=== PATIENT | male | born 1955 | race Hispanic/Latino ===

== ENCOUNTER → 2024-08-09 | Day surgery (SDC) | payer MEDICARE ==
[2024-08-08 14:09] LABS: BASOPHILS % 0.2 % (0.0-1.0); EOSINOPHILS # (AUTO) 0.2 (0.0-0.4); EOSINOPHILS % 2.9 % (0.0-6.0); HEMATOCRIT 39.5 % (38.2-49.6); HEMOGLOBIN 12.8 g/dL (14.0-18.0); LYMPHOCYTES # (AUTO) 2.2 (1.0-3.2); LYMPHOCYTES % 26.3 % (18.0-39.1); MEAN CORPUSCULAR HEMOGLOBIN 30.5 pg (28-32); MEAN CORPUSCULAR HGB CONC 32.4 g/dL (31-35); MEAN CORPUSCULAR VOLUME 94.3 fL (81-99); MONOCYTES # (AUTO) 0.5 (0.2-0.8); MONOCYTES % 5.8 % (4.4-11.3); NEUTROPHILS # (AUTO) 5.3 (2.1-6.9); NEUTROPHILS % 64.6 % (38.7-80.0); PLATELET COUNT 244 x10e3/uL (140-360); RED BLOOD COUNT 4.19 x10e6/uL (4.3-5.7); RED CELL DISTRIBUTION WIDTH 13.2 % (11.7-14.4); WHITE BLOOD COUNT 8.26 x10e3/uL (4.8-10.8)
[2024-08-08 14:32] LABS: ANION GAP 15.4 mmol/L (8-16); CALCIUM 9.6 mg/dL (8.4-10.2); CREATININE, SERUM 1.23 mg/dL (0.72-1.25); POTASSIUM 4.4 mmol/L (3.5-5.1)
[~2024-08-09] MED LIST: FENTANYL CITRATE/PF 100MCG/2 ML INJ ONE; LACTATED RINGER'S 1,000 ML ONE; MIDAZOLAM HCL 2 MG/2 ML VIAL ONE; ONDANSETRON HCL INJ 2MG/ML 2ML 2 MG/ML VIAL ONE
[2024-08-09 13:24] VITALS: TEMP 97.6
[2024-08-09 13:40] VITALS: BP 150/78; PULSE 65; RESP 15; O2SAT 98
== END | disposition home or self-care (01) ==
LOC: OR 09:27
PROVIDERS: ATTEND Ophthalmology
DX: H11.052 Peripheral pterygium, progressive, left eye (principal); Z01.810 Encounter for preprocedural cardiovascular examination; Z01.812 Encounter for preprocedural laboratory examination
CPT/HCPCS: 36415; 65426; 80048; 85025; 88305; 93005; J2250; J2405; J3010; J7121; V2790

== ENCOUNTER → 2025-01-10 | Day surgery (SDC) | payer MEDICARE ==
[2025-01-07 16:31] LABS: BASOPHILS % 0.3 % (0.0-1.0); EOSINOPHILS % 3.1 % (0.0-6.0); LYMPHOCYTES % 22.8 % (18.0-39.1); MONOCYTES % 9.3 % (4.4-11.3); NEUTROPHILS % 64.3 % (38.7-80.0); RED CELL DISTRIBUTION WIDTH 13.4 % (11.7-14.4)
[2025-01-07 16:52] LABS: EST GLOMERULAR FILTRATION RATE 53.0 ML/MIN (>=60)
[~2025-01-10] MED LIST changes: +CRESTOR40 MG PO; +DEXAMETHASONE SOD PHOS INJ 4 MG/ML SDV ONE; -FENTANYL CITRATE/PF 100MCG/2 ML INJ ONE; +GLYCOPYRROLATE INJ 0.2 MG/ML VIAL ONE; -LACTATED RINGER'S 1,000 ML ONE; +LIDOCAINE HCL 2% LOCAL INJ 5 ML SDV VIAL INJ ONE; -MIDAZOLAM HCL 2 MG/2 ML VIAL ONE; +PROPOFOL IV EMULSION 10 MG/ML 20 ML VIAL ONE
[2025-01-10] MEDS: PHENYLEPHRINE HCL 2 ML DROPS ONE (07:25)
[2025-01-10] MEDS: LACTATED RINGER'S 1,000 ML ONE (07:25)
[2025-01-10] MEDS: GATIFLOXACIN(OPTH) 5 ML LIQD ONE (07:25)
[2025-01-10] MEDS: CYCLOPENTOLATE HCL 2% OPTH SOLN 2 ML BTL OP ONE (07:25)
[2025-01-10 09:07] VITALS: TEMP 97
[2025-01-10 09:35] VITALS: BP 155/89; PULSE 72; RESP 16; O2SAT 98
== END | disposition home or self-care (01) ==
LOC: OR 05:15
PROVIDERS: ATTEND Ophthalmology
DX: H25.12 Age-related nuclear cataract, left eye (principal); N28.9 Disorder of kidney and ureter, unspecified; Z01.810 Encounter for preprocedural cardiovascular examination; Z01.812 Encounter for preprocedural laboratory examination; Z79.899 Other long term (current) drug therapy
CPT/HCPCS: 36415; 66984; 80048; 85025; 93005; J1100; J2003; J2405; J2704; J7121; V2632

== ENCOUNTER → 2025-03-07 | Day surgery (SDC) | payer MEDICARE ==
[2025-02-28 16:05] LABS: BASOPHILS % 0.3 % (0.0-1.0); EOSINOPHILS % 2.4 % (0.0-6.0); LYMPHOCYTES % 19.7 % (18.0-39.1); MONOCYTES % 6.9 % (4.4-11.3); NEUTROPHILS % 70.4 % (38.7-80.0); RED CELL DISTRIBUTION WIDTH 13.2 % (11.7-14.4)
[2025-02-28 16:23] LABS: EST GLOMERULAR FILTRATION RATE 72.0 ML/MIN (>=60)
[~2025-03-07] MED LIST changes: -DEXAMETHASONE SOD PHOS INJ 4 MG/ML SDV ONE; +FENTANYL CITRATE/PF 100MCG/2 ML INJ ONE; -GLYCOPYRROLATE INJ 0.2 MG/ML VIAL ONE; -ONDANSETRON HCL INJ 2MG/ML 2ML 2 MG/ML VIAL ONE
[2025-03-07] MEDS: CYCLOPENTOLATE HCL 2% OPTH SOLN 2 ML BTL OP ONE (06:47)
[2025-03-07] MEDS: PHENYLEPHRINE HCL 2 ML DROPS ONE (06:47)
[2025-03-07] MEDS: GATIFLOXACIN(OPTH) 5 ML LIQD ONE (06:47)
[2025-03-07] MEDS: LACTATED RINGER'S 1,000 ML ONE (06:47)
[2025-03-07 09:15] VITALS: TEMP 97
[2025-03-07 09:30] VITALS: BP 133/93; PULSE 47; RESP 16; O2SAT 100
== END | disposition home or self-care (01) ==
LOC: OR 05:50
PROVIDERS: ATTEND Ophthalmology
DX: H25.11 Age-related nuclear cataract, right eye (principal); E78.5 Hyperlipidemia, unspecified; Z01.810 Encounter for preprocedural cardiovascular examination; Z01.812 Encounter for preprocedural laboratory examination
CPT/HCPCS: 36415; 80048; 85025; J2003; V2632